=== PATIENT | male | born 1955 | race Caucasian/White ===

== ENCOUNTER 2017-06-28 00:41 | Inpatient (IN) | payer BC ==
[~2017-06-28] VITALS: Ht 182.9 cm; Wt 115.9 kg
[~2017-06-28 00:41] MED LIST: AMLO2.5T PO; HYDR12.5 PO; LISI-600 PO; METO25TA6 PO; OMEP40CA37 PO
[2017-06-28] MEDS ORDERED: ondansetron/PF 4mg/2ml inj IV ONE (01:00)
[2017-06-28] MEDS ORDERED: morphine 2 MG/ML inj. syringe IV ONE ×3 (01:00→01:40)
[2017-06-28] MEDS ORDERED: normal saline 1000ML IV soln IVB ONE (01:00)
[2017-06-28] MEDS ORDERED: iohexol 300mg/ml 100ml inj. ONE (01:17)
[2017-06-28 01:27] LABS: PARTIAL THROMBOPLASTIN TIME 27 SECONDS (22-32); PROTHROMBIN TIME 9.9 SECONDS (9.0-12.0)
[2017-06-28 01:30] LABS: ALANINE AMINOTRANSFERASE 34 U/L (12-78); ALBUMIN 3.6 G/DL (3.4-5.0); ALBUMIN/GLOBULIN RATIO 0.8 (1.1-1.5); ALKALINE PHOSPHATASE 78 IU/L (46-116); ANION GAP 10 (8-16); ASPARTATE AMINO TRANSFERASE 20 U/L (10-37); BILIRUBIN,TOTAL 0.4 MG/DL (0.1-1.0); BLOOD UREA NITROGEN 19 MG/DL (7-18); BUN/CREATININE RATIO 17.3 (5.4-32.0); CHLORIDE 103 MMOL/L (99-107); LIPASE 174 U/L (73-393); SODIUM 139 MMOL/L (135-145); TOTAL CARBON DIOXIDE 26.4 MMOL/L (24-32); eGFR 67 ML/MIN
[2017-06-28 01:32] LABS: GLUCOSE 118 MG/DL (70-104)
[2017-06-28 01:33] LABS: POTASSIUM 4.1 MMOL/L (3.5-5.1)
[2017-06-28] MEDS ORDERED: HYDROmorphone 1 mg/ml syringe IV ONE (01:45)
[2017-06-28] MEDS ORDERED: HYDROmorphone 2mg/ml vial IV PRN ×2 (01:55→02:50)
[2017-06-28] MEDS ORDERED: HYDROmorphone 2mg/ml vial IV ONE (01:55)
[2017-06-28 02:17] LABS: BASOPHILS % (AUTO) 0.1 % (0-1); CLARITY,URINE CLEAR (Clear); COLOR,URINE YELLOW (Yellow); EOSINOPHILS # (AUTO) 0.4 X10'3 (0-0.9); EOSINOPHILS % (AUTO) 2.3 % (0-6); GLUCOSE, URINE NEGATIVE (Neg); HEMOGLOBIN 13.3 g/dl (14.0-17.9); KETONES,URINE NEGATIVE (Neg); LEUKOCYTE ESTERASE ,URINE NEGATIVE (Neg); LYMPHOCYTES # (AUTO) 2.5 X10'3 (1.1-4.8); LYMPHOCYTES % (AUTO) 14.7 % (21-51); MEAN CORPUSCULAR HEMOGLOBIN 28.4 PG (27.0-31.0); MEAN CORPUSCULAR HGB CONC 33.3 % (33.0-36.5); MEAN CORPUSCULAR VOLUME 85.2 FL (78-98); MEAN PLATELET VOLUME 8.5 FL (7.4-10.4); MONOCYTES # (AUTO) 0.2 X10'3 (0-0.9); MONOCYTES % (AUTO) 1.3 % (2-12); NEUTROPHILS % (AUTO) 81.6 % (42-75); NITRITES, URINE NEGATIVE (Neg); OCCULT BLOOD,URINE TRACE-INTACT (Neg); PLATELET COUNT 225 X10'3 (140-440); PROTEIN,URINE 30 mg/dl (Neg); RED CELL DISTRIBUTION WIDTH 14.3 % (11.5-14.5); UROBILINOGEN,URINE 0.2 E.U/dL (0.2-1.0); WHITE BLOOD COUNT 17.2 X10'3 (4.5-11.0)
[2017-06-28 02:32] LABS: UA COLLECTION TYPE CLN CATCH MIDSTREAM
[2017-06-28 02:37] LABS: RBC,URINE 0-2 /HPF (0-2); WBC,URINE 0-4 /HPF (0-4)
[2017-06-28 02:38] LABS: BACTERIA,URINE FEW /HPF (Neg); MUCUS STRANDS MANY /LPF (Neg); SQUAMOUS EPITHELIAL CELL,UR NONE SEEN /LPF (FEW)
[2017-06-28] MEDS: normal saline 1000ml 1,000 ML IV SCH ×2 (02:59→23:31)
[2017-06-28] MEDS ORDERED: mag hydrox/Alum hydrox/simeth 30ml oral suspension PO PRN (03:00)
[2017-06-28] MEDS ORDERED: ondansetron/PF 4mg/2ml inj IV PRN (03:00)
[2017-06-28] MEDS ORDERED: diphenhydrAMINE 25mg capsule PO PRN (03:00)
[2017-06-28] MEDS ORDERED: metoclopramide 5 mg/ml inj IV PRN (03:00)
[2017-06-28] MEDS ORDERED: HYDROcodone/acetaminophen 5mg/325mg tablet PO PRN (03:00)
[2017-06-28] MEDS ORDERED: acetaminophen 325mg tablet PO PRN ×2 (03:00)
[2017-06-28] MEDS ORDERED: acetaminophen 650mg rectal suppository RC PRN (03:00)
[2017-06-28] MEDS ORDERED: HYDROcodone/acetaminophen 10/325mg tab PO PRN (03:00)
[2017-06-28] MEDS ORDERED: morphine 2 MG/ML inj. syringe IV PRN ×2 (03:00)
[2017-06-28] MEDS ORDERED: magnesium hydroxide 30ml (MOM) UD suspension PO PRN (03:00)
[2017-06-28] MEDS ORDERED: bisacodyl 10mg suppository rectal RC PRN (03:00)
[2017-06-28] MEDS ORDERED: HYDROmorphone 1 mg/ml syringe IV PRN ×2 (03:00)
[2017-06-28] MEDS ORDERED: vancomycin/NS 1 GM ADD-VANTAGE 250 ML X 1 DOSE IV ONE (03:30)
[2017-06-28 03:39] LABS: HEMOGLOBIN A1C 6.2 % (4.5-6.2)
[2017-06-28] MEDS: piperacillin/tazo 4.5gm/100ml 100 ML IV SCH ×4 (03:56→23:24)
[2017-06-28] MEDS: HYDROmorphone 2mg/ml vial IV PRN ×3 (07:16→21:48)
[2017-06-28] MEDS: lactobacillus rhamnosus 10,000 MMU CELLS/CAPSULE PO SCH ×2 (07:30→17:54)
[2017-06-28 08:00] VITALS: BP 150/88
[2017-06-28] MEDS: amLODIPine 2.5mg tablet PO SCH (08:00)
[2017-06-28] MEDS ORDERED: piperacillin/tazo 3.375gm/50ml 50 ML IV SCH (08:00)
[2017-06-28] MEDS: pantoprazole 40 MG vial IV SCH (08:00)
[2017-06-28] MEDS ORDERED: vancomycin/NS 1 GM ADD-VANTAGE 250 ML IV SCH (08:00)
[2017-06-28] MEDS: lisinopril 10 MG tablet PO SCH (08:00)
[2017-06-28] MEDS: metoprolol tartrate 25mg tablet PO SCH ×2 (09:17→20:00)
[2017-06-28] MEDS: docusate sod 100mg capsule PO SCH ×2 (09:17→20:00)
[2017-06-28 11:30] VITALS: BP 132/89
[2017-06-28] MEDS ORDERED: morphine 5 MG/ML injection IV PRN ×2 (17:02→17:03)
[2017-06-28 19:30] VITALS: BP 154/84
[2017-06-28] MEDS ORDERED: temazepam 15mg capsule PO PRN (21:00)
[2017-06-28 23:30] VITALS: BP 151/91
[2017-06-29] VITALS (16 sets, daily range): BP systolic 126–166; BP diastolic 83–107
[2017-06-29 06:16] LABS: BASOPHILS % (AUTO) 0.1 % (0-1); EOSINOPHILS # (AUTO) 0.3 X10'3 (0-0.9); EOSINOPHILS % (AUTO) 2.1 % (0-6); HEMATOCRIT 35.2 % (42.0-52.0); HEMOGLOBIN 12.2 g/dl (14.0-17.9); LYMPHOCYTES # (AUTO) 2.1 X10'3 (1.1-4.8); LYMPHOCYTES % (AUTO) 13.8 % (21-51); MEAN CORPUSCULAR HEMOGLOBIN 28.8 PG (27.0-31.0); MEAN CORPUSCULAR HGB CONC 34.7 % (33.0-36.5); MEAN CORPUSCULAR VOLUME 83.1 FL (78-98); MONOCYTES # (AUTO) 1.1 X10'3 (0-0.9); MONOCYTES % (AUTO) 7.7 % (2-12); NEUTROPHILS # (AUTO) 11.4 X10'3 (1.8-7.7); NEUTROPHILS % (AUTO) 76.3 % (42-75); PLATELET COUNT 166 X10'3 (140-440); RED BLOOD COUNT 4.24 X10'6 (4.70-6.10); RED CELL DISTRIBUTION WIDTH 14.3 % (11.5-14.5)
[2017-06-29 06:43] LABS: ALANINE AMINOTRANSFERASE 31 U/L (12-78); ALBUMIN 3.1 G/DL (3.4-5.0); ALBUMIN/GLOBULIN RATIO 0.7 (1.1-1.5); ALKALINE PHOSPHATASE 58 IU/L (46-116); ANION GAP 9 (8-16); ASPARTATE AMINO TRANSFERASE 15 U/L (10-37); BILIRUBIN,TOTAL 1.2 MG/DL (0.1-1.0); BLOOD UREA NITROGEN 13 MG/DL (7-18); CALCIUM 8.8 MG/DL (8.5-10.1); CHLORIDE 102 MMOL/L (99-107); POTASSIUM 3.4 MMOL/L (3.5-5.1); SODIUM 136 MMOL/L (135-145); TOTAL CARBON DIOXIDE 25.2 MMOL/L (24-32); TOTAL PROTEIN 7.3 G/DL (6.4-8.2); eGFR 75 ML/MIN
[2017-06-29 06:48] LABS: GLUCOSE 129 MG/DL (70-104)
[2017-06-29] MEDS ORDERED: potassium Cl 20 mEq SR tablet PO PRN ×2 (06:55)
[2017-06-29] MEDS ORDERED: potassium Cl 40MEQ/NS 500ml 500 ML IV PRN ×2 (06:55)
[2017-06-29] MEDS: lactobacillus rhamnosus 10,000 MMU CELLS/CAPSULE PO SCH ×2 (07:30→17:05)
[2017-06-29] MEDS: lisinopril 10 MG tablet PO SCH (08:00)
[2017-06-29] MEDS: docusate sod 100mg capsule PO SCH ×2 (08:00→20:00)
[2017-06-29] MEDS: amLODIPine 2.5mg tablet PO SCH (08:00)
[2017-06-29] MEDS: pantoprazole 40 MG vial IV SCH (09:12)
[2017-06-29] MEDS: metoprolol tartrate 25mg tablet PO SCH ×2 (09:14→20:00)
[2017-06-29] MEDS: piperacillin/tazo 4.5gm/100ml 100 ML IV SCH ×2 (09:14→14:37)
[2017-06-29] MEDS ORDERED: pneumococcal 23-VAL P-sac vacc 25 mcg/0.5ml vial IMVAC ONE (10:00)
[2017-06-29] MEDS ORDERED: normal saline 1000ml 1,000 ML IV SCH (10:47)
[2017-06-29] MEDS ORDERED: midazolam 2 mg/2 ml injection ONE (10:51)
[2017-06-29] MEDS ORDERED: fentaNYL/PF 50MCG/1 ML 2ML syringe ONE (10:51)
[2017-06-29] MEDS ORDERED: midazolam 2 mg/2 ml injection IV PRN (11:05)
[2017-06-29] MEDS ORDERED: fentaNYL/PF 50MCG/1 ML 2ML syringe IV PRN (11:05)
[2017-06-29] MEDS ORDERED: VANCOMYCIN LEVEL IV NR (12:30)
[2017-06-29] MEDS ORDERED: LORazepam 1 MG tablet PO PRN (15:25)
[2017-06-29] MEDS: HYDROmorphone 2mg/ml vial IV PRN (23:02)
[2017-06-30] VITALS: BP 162/93
[2017-06-30] MEDS: diphenhydrAMINE 50 mg/ml inj IV PRN ×2 (00:24→00:31)
[2017-06-30] MEDS: piperacillin/tazo 4.5gm/100ml 100 ML IV SCH ×3 (00:24→15:41)
[2017-06-30 05:44] LABS: BASOPHILS # (AUTO) 0.1 X10'3 (0-0.2); BASOPHILS % (AUTO) 0.5 % (0-1); EOSINOPHILS # (AUTO) 0.3 X10'3 (0-0.9); EOSINOPHILS % (AUTO) 1.8 % (0-6); HEMATOCRIT 36.8 % (42.0-52.0); HEMOGLOBIN 12.2 g/dl (14.0-17.9); LYMPHOCYTES # (AUTO) 2.6 X10'3 (1.1-4.8); LYMPHOCYTES % (AUTO) 17.9 % (21-51); MEAN CORPUSCULAR HEMOGLOBIN 28.3 PG (27.0-31.0); MEAN CORPUSCULAR HGB CONC 33.1 % (33.0-36.5); MEAN CORPUSCULAR VOLUME 85.6 FL (78-98); MEAN PLATELET VOLUME 9.2 FL (7.4-10.4); MONOCYTES % (AUTO) 7.1 % (2-12); NEUTROPHILS # (AUTO) 10.7 X10'3 (1.8-7.7); NEUTROPHILS % (AUTO) 72.7 % (42-75); PLATELET COUNT 170 X10'3 (140-440); RED CELL DISTRIBUTION WIDTH 14.4 % (11.5-14.5); WHITE BLOOD COUNT 14.7 X10'3 (4.5-11.0)
[2017-06-30 06:02] LABS: ALANINE AMINOTRANSFERASE 23 U/L (12-78); ALBUMIN 2.8 G/DL (3.4-5.0); ALBUMIN/GLOBULIN RATIO 0.6 (1.1-1.5); ALKALINE PHOSPHATASE 56 IU/L (46-116); ANION GAP 7 (8-16); ASPARTATE AMINO TRANSFERASE 16 U/L (10-37); BILIRUBIN,TOTAL 0.8 MG/DL (0.1-1.0); BLOOD UREA NITROGEN 11 MG/DL (7-18); CALCIUM 8.8 MG/DL (8.5-10.1); CHLORIDE 105 MMOL/L (99-107); POTASSIUM 3.6 MMOL/L (3.5-5.1); SODIUM 140 MMOL/L (135-145); TOTAL CARBON DIOXIDE 27.6 MMOL/L (24-32); TOTAL PROTEIN 7.3 G/DL (6.4-8.2); eGFR 67 ML/MIN
[2017-06-30 06:06] LABS: GLUCOSE 111 MG/DL (70-104)
[2017-06-30 07:31] VITALS: BP 170/101
[2017-06-30] MEDS: lactobacillus rhamnosus 10,000 MMU CELLS/CAPSULE PO SCH ×2 (07:47→16:59)
[2017-06-30] MEDS: pantoprazole 40 MG vial IV SCH (07:47)
[2017-06-30] MEDS: amLODIPine 2.5mg tablet PO SCH (07:48)
[2017-06-30] MEDS: lisinopril 10 MG tablet PO SCH (07:48)
[2017-06-30] MEDS: metoprolol tartrate 25mg tablet PO SCH ×2 (07:48→19:43)
[2017-06-30] MEDS: docusate sod 100mg capsule PO SCH ×2 (07:49→19:44)
[2017-06-30 11:00] VITALS: BP 155/93
[2017-06-30] MEDS: vancomycin inj 1,250 MG in normal saline 250ml IV soln 250 ML IV SCH ×2 (12:47→21:47)
[2017-06-30 20:20] VITALS: BP 161/96
[2017-06-30] MEDS ORDERED: amLODIPine 5mg tablet PO PRN (23:20)
[2017-07-01] VITALS: BP 173/100
[2017-07-01] MEDS: piperacillin/tazo 4.5gm/100ml 100 ML IV SCH (00:02)
[2017-07-01 00:48] VITALS: BP 153/82
[2017-07-01 05:57] LABS: BASOPHILS % (AUTO) 0.3 % (0-1); EOSINOPHILS # (AUTO) 0.4 X10'3 (0-0.9); EOSINOPHILS % (AUTO) 2.7 % (0-6); HEMATOCRIT 36.7 % (42.0-52.0); HEMOGLOBIN 12.5 g/dl (14.0-17.9); LYMPHOCYTES # (AUTO) 2.7 X10'3 (1.1-4.8); LYMPHOCYTES % (AUTO) 19.9 % (21-51); MEAN CORPUSCULAR HEMOGLOBIN 28.6 PG (27.0-31.0); MEAN CORPUSCULAR VOLUME 84.2 FL (78-98); MEAN PLATELET VOLUME 8.8 FL (7.4-10.4); MONOCYTES # (AUTO) 1.1 X10'3 (0-0.9); MONOCYTES % (AUTO) 7.7 % (2-12); NEUTROPHILS # (AUTO) 9.5 X10'3 (1.8-7.7); NEUTROPHILS % (AUTO) 69.4 % (42-75); PLATELET COUNT 207 X10'3 (140-440); RED BLOOD COUNT 4.36 X10'6 (4.70-6.10); WHITE BLOOD COUNT 13.7 X10'3 (4.5-11.0)
[2017-07-01 07:10] LABS: ALANINE AMINOTRANSFERASE 36 U/L (12-78); ALBUMIN/GLOBULIN RATIO 0.6 (1.1-1.5); ALKALINE PHOSPHATASE 61 IU/L (46-116); ANION GAP 11 (8-16); ASPARTATE AMINO TRANSFERASE 23 U/L (10-37); BILIRUBIN,TOTAL 0.7 MG/DL (0.1-1.0); BLOOD UREA NITROGEN 13 MG/DL (7-18); BUN/CREATININE RATIO 10.8 (5.4-32.0); CALCIUM 9.2 MG/DL (8.5-10.1); CHLORIDE 105 MMOL/L (99-107); MAGNESIUM 2.1 MG/DL (1.5-2.4); POTASSIUM 3.4 MMOL/L (3.5-5.1); SODIUM 142 MMOL/L (135-145); TOTAL CARBON DIOXIDE 26.5 MMOL/L (24-32); TOTAL PROTEIN 7.8 G/DL (6.4-8.2); eGFR 61 ML/MIN
[2017-07-01 07:13] LABS: GLUCOSE 110 MG/DL (70-104)
[2017-07-01] MEDS: vancomycin inj 1,250 MG in normal saline 250ml IV soln 250 ML IV SCH (07:38)
[2017-07-01] MEDS: metoprolol tartrate 25mg tablet PO SCH (07:39)
[2017-07-01] MEDS: lactobacillus rhamnosus 10,000 MMU CELLS/CAPSULE PO SCH (07:39)
[2017-07-01] MEDS: pantoprazole 40 MG vial IV SCH (07:39)
[2017-07-01] MEDS: docusate sod 100mg capsule PO SCH (07:40)
[2017-07-01] MEDS: lisinopril 10 MG tablet PO SCH (07:40)
[2017-07-01] MEDS: amLODIPine 2.5mg tablet PO SCH (07:40)
[2017-07-01 08:05] VITALS: BP 148/101
[2017-07-01] MEDS ORDERED: metroNIDAZOLE 500mg tablet PO SCH (09:50)
[2017-07-01] MEDS ORDERED: LEVO750T21 PO (10:29)
[2017-07-01] MEDS ORDERED: METR500T4 PO (10:29)
[2017-07-01] MEDS ORDERED: LORA0.5T PO (10:53)
[2017-07-01] MEDS ORDERED: potassium Cl 20 mEq SR tablet PO STA (10:53)
[2017-07-01] MEDS ORDERED: levoFLOXACIN 750MG TABLET PO SCH (11:00)
[2017-07-01 12:00] VITALS: BP 131/92
[2017-07-01] MEDS ORDERED: VANCOMYCIN LEVEL IV NR (12:30)
== END 2017-07-01 12:58 | disposition home or self-care (01) | DRG 815 ==
LOC: ER 00:42 → ED HOLD 02:59 → SUR 3N 07:36
PROVIDERS: ADMIT Family Medicine; ATTEND Family Medicine
PROC: BW211ZZ Computerized Tomography (CT Scan) of Abdomen and Pelvis using Low Osmolar Contrast (ICD-10-PCS; principal; 2017-06-28)
PROC: 079P3ZX Drainage of Spleen, Percutaneous Approach, Diagnostic (ICD-10-PCS; 2017-06-28)
DX: D73.3 Abscess of spleen (principal); I16.1 Hypertensive emergency; E66.01 Morbid (severe) obesity due to excess calories; E87.6 Hypokalemia; F41.9 Anxiety disorder, unspecified; E86.0 Dehydration; I10 Essential (primary) hypertension; K21.9 Gastro-esophageal reflux disease without esophagitis; K40.90 Unilateral inguinal hernia, without obstruction or gangrene, not specified as recurrent; Z79.899 Other long term (current) drug therapy; Z68.34 Body mass index [BMI] 34.0-34.9, adult
CPT/HCPCS: 10160; 36415; 71045; 74177; 77012; 80053; 80202; 81001; 83036; 83605; 83690; 83735; 83880; 84484; 85025; 85610; 85730; 87040; 87070; 87075; 93005; 96361; 96374; 96375; 99152; 99153; 99285; C9113; J1170; J1200; J2250; J2405; J2543; J3010; J3370; J3480; J3490; J7030; Q0163; Q9967

== ENCOUNTER 2017-09-01 19:18 | Emergency (ER) | payer BC ==
[~2017-09-01] VITALS: Ht 182.9 cm; Wt 91.4 kg
[~2017-09-01 19:18] MED LIST changes: -AMLO2.5T PO; -HYDR12.5 PO; -METO25TA6 PO; +METR500T4 PO; +ONDA4TAB9 PO
[2017-09-01 20:00] VITALS: BP 138/64
== END 2017-09-01 20:56 | disposition left against medical advice (07) ==
LOC: ER 19:18
DX: R10.9 Unspecified abdominal pain (principal); Z53.21 Procedure and treatment not carried out due to patient leaving prior to being seen by health care provider

== ENCOUNTER 2017-09-09 07:06 | Day surgery (SDC) | payer BC ==
[~2017-09-09] VITALS: Ht 182.9 cm; Wt 104.0 kg
[2017-09-09] VITALS (19 sets, daily range): BP systolic 107–158; BP diastolic 57–96
[2017-09-09] MEDS ORDERED: normal saline 1000ml 1,000 ML IV SCH (07:35)
[2017-09-09 08:05] LABS: BASOPHILS % (AUTO) 0.4 % (0-1); EOSINOPHILS # (AUTO) 0.3 X10'3 (0-0.9); EOSINOPHILS % (AUTO) 2.4 % (0-6); HEMOGLOBIN 14.5 g/dl (14.0-17.9); LYMPHOCYTES # (AUTO) 3.2 X10'3 (1.1-4.8); MEAN CORPUSCULAR HEMOGLOBIN 27.7 PG (27.0-31.0); MEAN CORPUSCULAR HGB CONC 33.7 % (33.0-36.5); MEAN CORPUSCULAR VOLUME 82.4 FL (78-98); MONOCYTES # (AUTO) 0.8 X10'3 (0-0.9); MONOCYTES % (AUTO) 7.1 % (2-12); NEUTROPHILS # (AUTO) 6.8 X10'3 (1.8-7.7); NEUTROPHILS % (AUTO) 61.1 % (42-75); PLATELET COUNT 254 X10'3 (140-440); RED BLOOD COUNT 5.22 X10'6 (4.70-6.10); RED CELL DISTRIBUTION WIDTH 16.8 % (11.5-14.5); WHITE BLOOD COUNT 11.2 X10'3 (4.5-11.0)
[2017-09-09] MEDS ORDERED: LIDOcaine 1%/PF (10mg/ml) 5ml vial SQ ONE (08:20)
[2017-09-09] MEDS ORDERED: fentaNYL/PF 50MCG/1 ML 2ML syringe IV PRN (08:20)
[2017-09-09] MEDS ORDERED: midazolam 2 mg/2 ml injection IV PRN (08:20)
[2017-09-09] MEDS ORDERED: fentaNYL/PF 50MCG/1 ML 2ML syringe ONE (09:02)
[2017-09-09] MEDS ORDERED: midazolam 2 mg/2 ml injection ONE (09:02)
[2017-09-09] MEDS ORDERED: LIDOcaine 1%/PF (10mg/ml) 5ml vial ONE (09:32)
[2017-09-09] MEDS ORDERED: HYDROcodone/acetaminophen 5mg/325mg tablet PO ONE (10:10)
[2017-09-09] MEDS ORDERED: ondansetron/PF 4mg/2ml inj IV ONE (10:10)
== END 2017-09-09 12:00 | disposition home or self-care (01) ==
LOC: SSTAY O 07:06
PROVIDERS: ATTEND Radiology Diagnostic Radiology
DX: D73.3 Abscess of spleen (principal); I10 Essential (primary) hypertension; K22.70 Barrett's esophagus without dysplasia; Z98.890 Other specified postprocedural states; Z79.899 Other long term (current) drug therapy
CPT/HCPCS: 36415; 49405; 85025; 87070; 87075; A6257; C1769; J2001; J2250; J2405; J3010; J7030; 99152; 99153; C1729

== ENCOUNTER 2017-10-14 06:30 | Emergency (ER) | payer BC ==
[~2017-10-14] VITALS: Ht 188320.1 cm; Wt 96.0 kg
[~2017-10-14 06:30] MED LIST changes: -METR500T4 PO; -ONDA4TAB9 PO
[2017-10-14 06:57] LABS: BASOPHILS % (AUTO) 0.4 % (0-1); EOSINOPHILS # (AUTO) 0.1 X10'3 (0-0.9); EOSINOPHILS % (AUTO) 1.4 % (0-6); HEMATOCRIT 37.2 % (42.0-52.0); HEMOGLOBIN 12.6 g/dl (14.0-17.9); LYMPHOCYTES # (AUTO) 1.4 X10'3 (1.1-4.8); LYMPHOCYTES % (AUTO) 18.5 % (21-51); MEAN CORPUSCULAR HGB CONC 33.8 % (33.0-36.5); MEAN CORPUSCULAR VOLUME 82.9 FL (78-98); MEAN PLATELET VOLUME 7.9 FL (7.4-10.4); MONOCYTES # (AUTO) 0.3 X10'3 (0-0.9); MONOCYTES % (AUTO) 4.1 % (2-12); NEUTROPHILS # (AUTO) 5.6 X10'3 (1.8-7.7); NEUTROPHILS % (AUTO) 75.6 % (42-75); PLATELET COUNT 259 X10'3 (140-440); RED BLOOD COUNT 4.49 X10'6 (4.70-6.10); RED CELL DISTRIBUTION WIDTH 15.8 % (11.5-14.5); WHITE BLOOD COUNT 7.4 X10'3 (4.5-11.0)
[2017-10-14 07:15] LABS: ALANINE AMINOTRANSFERASE 69 U/L (12-78); ALBUMIN 3.1 G/DL (3.4-5.0); ALBUMIN/GLOBULIN RATIO 0.7 (1.1-1.5); ALKALINE PHOSPHATASE 75 IU/L (46-116); ANION GAP 11 (8-16); ASPARTATE AMINO TRANSFERASE 31 U/L (10-37); BILIRUBIN,TOTAL 0.4 MG/DL (0.1-1.0); BLOOD UREA NITROGEN 14 MG/DL (7-18); BUN/CREATININE RATIO 13.2 (5.4-32.0); CALCIUM 9.1 MG/DL (8.5-10.1); CHLORIDE 100 MMOL/L (99-107); CREATININE 1.06 MG/DL (0.60-1.10); POTASSIUM 3.8 MMOL/L (3.5-5.1); SODIUM 135 MMOL/L (135-145); TOTAL CARBON DIOXIDE 24.3 MMOL/L (24-32); TOTAL PROTEIN 7.6 G/DL (6.4-8.2); eGFR 70 ML/MIN
[2017-10-14 07:22] LABS: GLUCOSE 214 MG/DL (70-104)
[2017-10-14 07:25] LABS: ETHANOL < 0.010 GM/DL (0.0-0.010)
[2017-10-14 07:36] LABS: ACETAMINOPHEN < 2.0 UG/ML (10-30)
[2017-10-14] MEDS ORDERED: AMOX-580 PO (07:58)
[2017-10-14] MEDS ORDERED: QUET25TA PO ×2 (07:58)
[2017-10-14] MEDS ORDERED: normal saline 1000ML IV soln IVB ONE (11:30)
[2017-10-14 14:05] LABS: CLARITY,URINE CLEAR (Clear); COLOR,URINE YELLOW (Yellow); GLUCOSE, URINE NEGATIVE (Neg); KETONES,URINE NEGATIVE (Neg); LEUKOCYTE ESTERASE ,URINE NEGATIVE (Neg); NITRITES, URINE NEGATIVE (Neg); OCCULT BLOOD,URINE NEGATIVE (Neg); PH,URINE 6.5 (4.8-8.0); PROTEIN,URINE NEGATIVE (Neg); UROBILINOGEN,URINE 0.2 E.U/dL (0.2-1.0)
[2017-10-14 14:10] LABS: UA COLLECTION TYPE CLN CATCH MIDSTREAM
[2017-10-14 14:22] LABS: URINE AMPHETAMINE SCREEN NEGATIVE (Neg); URINE BARBITUATE SCREEN NEGATIVE (Neg); URINE BENZODIAZEPINES SCREEN NEGATIVE (Neg); URINE CANNABINOID SCREEN NEGATIVE (Neg); URINE COCAINE SCREEN NEGATIVE (Neg); URINE METHADONE SCREEN NEGATIVE (Neg); URINE OPIATE SCREEN NEGATIVE (Neg); URINE PHENCYCLIDINE SCREEN NEGATIVE (Neg)
[2017-10-14] MEDS: amox tr/potassium clavulanate 875/125mg TAB PO SCH (20:06)
[2017-10-14] MEDS: QUEtiapine 25mg tablet PO SCH (20:06)
[2017-10-15] MEDS: lisinopril 10 MG tablet PO SCH (09:21)
[2017-10-15] MEDS: amox tr/potassium clavulanate 875/125mg TAB PO SCH ×2 (09:21→21:21)
[2017-10-15] MEDS: pantoprazole 40mg Tablet.DR PO SCH (09:22)
[2017-10-15] MEDS ORDERED: PETROLATUM RC PRN (11:45)
[2017-10-15] MEDS ORDERED: PHENYLEPHRINE RC PRN (11:45)
[2017-10-15] MEDS ORDERED: MINERAL OIL RC PRN (11:45)
[2017-10-15] MEDS ORDERED: LORazepam 1 MG tablet PO ONE (14:10)
[2017-10-15] MEDS: lactobacillus rhamnosus 10,000 MMU CELLS/CAPSULE PO SCH (19:12)
[2017-10-15] MEDS: QUEtiapine 25mg tablet PO SCH (22:15)
[2017-10-16] MEDS: pantoprazole 40mg Tablet.DR PO SCH (07:44)
[2017-10-16] MEDS: lactobacillus rhamnosus 10,000 MMU CELLS/CAPSULE PO SCH ×2 (09:00→20:24)
[2017-10-16] MEDS: lisinopril 10 MG tablet PO SCH (09:01)
[2017-10-16] MEDS: amox tr/potassium clavulanate 875/125mg TAB PO SCH ×2 (09:02→20:24)
[2017-10-16] MEDS: LORazepam 1 MG tablet PO PRN (14:37)
[2017-10-16] MEDS: QUEtiapine 25mg tablet PO SCH (20:24)
[2017-10-17] MEDS: LORazepam 1 MG tablet PO PRN (03:30)
[2017-10-17 05:30] VITALS: BP 104/66
[2017-10-17] MEDS: lisinopril 10 MG tablet PO SCH (08:00)
[2017-10-17] MEDS ORDERED: citalopram 20mg tablet PO SCH (08:00)
[2017-10-17] MEDS: lactobacillus rhamnosus 10,000 MMU CELLS/CAPSULE PO SCH (08:29)
[2017-10-17] MEDS: amox tr/potassium clavulanate 875/125mg TAB PO SCH (08:35)
== END 2017-10-17 10:03 | disposition home or self-care (01) ==
LOC: ER 06:30
DX: T43.591A Poisoning by other antipsychotics and neuroleptics, accidental (unintentional), initial encounter (principal); K21.9 Gastro-esophageal reflux disease without esophagitis; Z79.899 Other long term (current) drug therapy; Z60.2 Problems related to living alone; Y92.89 Other specified places as the place of occurrence of the external cause
CPT/HCPCS: 36415; 71045; 80053; 80305; 80320; 80329; 81003; 82948; 84443; 85025; 93005; 99285; J7030

== ENCOUNTER 2017-11-07 17:33 | Emergency (ER) | payer BC ==
[~2017-11-07] VITALS: Ht 182.9 cm; Wt 208.0 kg
[~2017-11-07 17:33] MED LIST changes: +AMOX-580 PO; +QUET25TA PO
[2017-11-07] MEDS ORDERED: normal saline 1000ML IV soln IV ONE (18:25)
[2017-11-07] MEDS ORDERED: pantoprazole IV 80 MG in normal saline 100ml IV soln 100 ML IV ONE (18:25)
[2017-11-07] MEDS ORDERED: pantoprazole 40 MG vial IV ONE (18:30)
[2017-11-07 18:46] LABS: BASOPHILS # (AUTO) 0.1 X10'3 (0-0.2); BASOPHILS % (AUTO) 0.4 % (0-1); EOSINOPHILS # (AUTO) 0.1 X10'3 (0-0.9); EOSINOPHILS % (AUTO) 0.9 % (0-6); HEMATOCRIT 40.1 % (42.0-52.0); HEMOGLOBIN 13.7 g/dl (14.0-17.9); LYMPHOCYTES # (AUTO) 1.9 X10'3 (1.1-4.8); LYMPHOCYTES % (AUTO) 15.4 % (21-51); MEAN CORPUSCULAR HEMOGLOBIN 28.3 PG (27.0-31.0); MEAN CORPUSCULAR HGB CONC 34.1 % (33.0-36.5); MEAN CORPUSCULAR VOLUME 83.2 FL (78-98); MEAN PLATELET VOLUME 8.7 FL (7.4-10.4); MONOCYTES # (AUTO) 0.7 X10'3 (0-0.9); MONOCYTES % (AUTO) 5.7 % (2-12); NEUTROPHILS # (AUTO) 9.5 X10'3 (1.8-7.7); NEUTROPHILS % (AUTO) 77.6 % (42-75); PLATELET COUNT 234 X10'3 (140-440); RED BLOOD COUNT 4.82 X10'6 (4.70-6.10); RED CELL DISTRIBUTION WIDTH 16.1 % (11.5-14.5); WHITE BLOOD COUNT 12.3 X10'3 (4.5-11.0)
[2017-11-07 18:57] LABS: PARTIAL THROMBOPLASTIN TIME 29 SECONDS (22-32); PROTHROMBIN TIME 10.8 SECONDS (9.0-12.0)
[2017-11-07 19:02] LABS: ALANINE AMINOTRANSFERASE 32 U/L (12-78); ALBUMIN 3.7 G/DL (3.4-5.0); ALBUMIN/GLOBULIN RATIO 0.8 (1.1-1.5); ALKALINE PHOSPHATASE 94 IU/L (46-116); ANION GAP 12 (8-16); ASPARTATE AMINO TRANSFERASE 23 U/L (10-37); BILIRUBIN,TOTAL 0.8 MG/DL (0.1-1.0); BLOOD UREA NITROGEN 22 MG/DL (7-18); BUN/CREATININE RATIO 13.8 (5.4-32.0); CALCIUM 9.6 MG/DL (8.5-10.1); CHLORIDE 102 MMOL/L (99-107); CREATININE 1.59 MG/DL (0.60-1.10); POTASSIUM 3.9 MMOL/L (3.5-5.1); SODIUM 137 MMOL/L (135-145); TOTAL CARBON DIOXIDE 22.9 MMOL/L (24-32); TOTAL PROTEIN 8.1 G/DL (6.4-8.2); eGFR 44 ML/MIN
[2017-11-07 19:04] LABS: GLUCOSE 124 MG/DL (70-104)
[2017-11-07 19:35] LABS: OCCULT BLOOD STOOL POSITIVE (Neg)
[2017-11-07 20:16] VITALS: BP 134/92
== END 2017-11-07 20:18 | disposition home or self-care (01) ==
LOC: ER 17:34
DX: K62.5 Hemorrhage of anus and rectum (principal); K21.9 Gastro-esophageal reflux disease without esophagitis; K59.00 Constipation, unspecified; Z60.2 Problems related to living alone; Z79.2 Long term (current) use of antibiotics; Z79.899 Other long term (current) drug therapy
CPT/HCPCS: 36415; 71045; 80053; 82272; 85025; 85610; 85730; 86885; 86900; 86901; 93005; 96361; 96374; 99285; C9113; J7030